=== PATIENT | female | born 1985 | race Caucasian/White ===

== ENCOUNTER → 2016-08-23 | Outpatient (REF) | payer OTHER ==
[~2016-08-23] MED LIST: COLA100C PO; EXTR500C4 PO; MOTR200T44 PO
== END ==
LOC: M LAB REF 13:43
PROVIDERS: ATTEND Advanced Practice Midwife
DX: Z34.83 Encounter for supervision of other normal pregnancy, third trimester (principal); Z36 Encounter for antenatal screening of mother; Z3A.00 Weeks of gestation of pregnancy not specified

== ENCOUNTER → 2016-08-31 | Outpatient (CLI) | payer OTHER ==
[2016-08-31 14:38] LABS: FREE T4 0.95 NG/DL (0.76-1.46)
== END ==
LOC: M SMT 11:31
PROVIDERS: ATTEND Obstetrics & Gynecology
DX: Z34.83 Encounter for supervision of other normal pregnancy, third trimester (principal)

== ENCOUNTER 2016-09-20 11:44 | Inpatient (IN) | payer OTHER ==
[2016-09-20] VITALS (7 sets, daily range): BP systolic 110–134; BP diastolic 75–81
[~2016-09-20] VITALS: Ht 154.9 cm; Wt 85.0 kg
[2016-09-20] MEDS ORDERED: LEVO75TA4 PO (12:14)
[2016-09-20] MEDS ORDERED: LR 1,000 ML IV SCH (13:01)
[2016-09-20] MEDS ORDERED: LACTATED RINGER'S 1000 ML IV STA (13:01)
[2016-09-20] MEDS ORDERED: miSOPROStol 25 MCG 1/4 TAB (S0191) PV ONE ×2 (13:15→17:45)
[2016-09-20 13:50] LABS: MEAN CORPUSCULAR HGB CONC 33.5 g/dl (32.0-36.5); MEAN CORPUSCULAR VOLUME 89.5 fl (80.0-96.0); RED CELL DISTRIBUTION WIDTH 12.6 % (11.5-14.5); WHITE BLOOD COUNT 10.9 K/mm3 (4.0-10.0)
[2016-09-20] MEDS ORDERED: FAMOTIDINE 20 MG TAB PO SCH (21:00)
[2016-09-20] MEDS ORDERED: OXYTOCIN DRIP 30 UNITS in APPROPRIATE DILUENT 1 EA IV SCH (21:45)
[2016-09-21] VITALS (71 sets, daily range): BP systolic 87–141; BP diastolic 52–93
[2016-09-21] MEDS ORDERED: FENTANYL 2MCG/ML ROPIVACAINE 0.2% NACL 250 ML CADD As Ordered ONE (02:35)
[2016-09-21] MEDS ORDERED: ONDANSETRON 4MG/2ML VIAL (J2405) IV PRN ×2 (03:00→23:15)
[2016-09-21] MEDS ORDERED: REFRIGERATOR IV KEYS XX PRN (03:00)
[2016-09-21] MEDS ORDERED: ePHEDrine SULFATE 25 MG/5 ML(5MG/ML) SYRINGE IV PRN (03:00)
[2016-09-21] MEDS ORDERED: NALOXONE INJ 0.4 MG/1 ML VIAL (J2310) IV PRN ×3 (03:00→23:15)
[2016-09-21] MEDS ORDERED: FENTANYL/ROPIVACAINE/NACL BAG 200 ML EPIDURAL SCH (03:00)
[2016-09-21] MEDS ORDERED: EPIDURAL COMMENT XX SCH (03:00)
[2016-09-21] MEDS ORDERED: diphenhydrAMINE INJ 50MG/ML VIAL (J1200) IV PRN (03:00)
[2016-09-21] MEDS ORDERED: EPIDURAL/PCA KEYS XX PRN (03:00)
[2016-09-21] MEDS ORDERED: LACTATED RINGER'S 1000 ML IV PRN (03:00)
[2016-09-21] MEDS: LEVOTHYROXINE 0.075 MG TAB (75 MCG) PO SCH (08:28)
[2016-09-21] MEDS ORDERED: ceFAZolin 2 GM/D5W 50 ML IV BAG (J0690) As Ordered ONE (22:36)
[2016-09-21] MEDS ORDERED: BICITRA 30ML SOLN UDC As Ordered ONE (22:36)
[2016-09-21] MEDS ORDERED: MORPHINE PRES-FREE INJ 10 MG/10 ML VIAL (J2274) As Ordered ONE (23:12)
[2016-09-21] MEDS ORDERED: METOCLOPRAMIDE INJ 10MG/2ML VIAL (J2765) IV PRN (23:15)
[2016-09-21] MEDS ORDERED: NALBUPHINE HCL 10 MG/ML AMP (J2300) IV PRN (23:15)
[2016-09-21] MEDS ORDERED: KETOROLAC 60 MG/2 ML VIAL (J1885) As Ordered ONE (23:38)
[2016-09-21] MEDS ORDERED: ePHEDrine SULFATE 25 MG/5 ML(5MG/ML) SYRINGE As Ordered ONE (23:38)
[2016-09-21] MEDS ORDERED: OXYTOCIN INJ 10 UNITS/ML VIAL (J2590) As Ordered ONE (23:38)
[2016-09-21] MEDS ORDERED: ONDANSETRON 4MG/2ML VIAL (J2405) As Ordered ONE (23:38)
[2016-09-21] MEDS: LR 1,000 ML IV SCH (23:55)
[2016-09-22] VITALS (10 sets, daily range): BP systolic 111–132; BP diastolic 57–66
[2016-09-22] MEDS ORDERED: MEASLES,MUMPS,RUBELLA VACCINE INJ (MMR-II) (90707) SC SCH
[2016-09-22] MEDS ORDERED: OXYTOCIN DRIP 30 UNITS in APPROPRIATE DILUENT 1 EA IV ONE ×2
[2016-09-22] MEDS ORDERED: RHOGAM 300 MCG (1500 IU) INJ (J2790) IM SCH
[2016-09-22] MEDS ORDERED: DOCUSATE SODIUM 100 MG CAP PO PRN
[2016-09-22] MEDS ORDERED: OXYC1TAB23 PO (00:01)
[2016-09-22] MEDS ORDERED: PERCOCET 5MG/325MG TAB PO PRN ×3 (00:15)
[2016-09-22] MEDS ORDERED: fentaNYL 100 MCG/2 ML INJECTION (J3010) IV PRN (00:15)
[2016-09-22] MEDS ORDERED: METOCLOPRAMIDE INJ 10MG/2ML VIAL (J2765) IV PRN (00:15)
[2016-09-22] MEDS ORDERED: MEPERIDINE INJ 25 MG/ML VIAL (J2175) IV PRN (00:15)
[2016-09-22] MEDS ORDERED: ONDANSETRON 4MG/2ML VIAL (J2405) IV PRN ×2 (00:15)
[2016-09-22] MEDS ORDERED: LR 1,000 ML IV SCH (00:15)
[2016-09-22 00:50] LABS: CORD GAS ABE A -4.4; CORD GAS HCO3 A 22.9 MEQ/L; CORD GAS O2 SAT A 16.1 %; CORD GAS PCO2 A 50.5 mmHg; CORD GAS PH A 7.274 UNITS; CORD GAS PO2 A 11.6 mmHg; CORD GAS SBC A 18.9 MEQ/L; CORD GAS TCO2 A 24.4 MEQ/L
[2016-09-22 00:51] LABS: CORD GAS PCO2 V 36.4 mmHg; CORD GAS PH V 7.31 UNITS
[2016-09-22 00:52] LABS: CORD GAS ABE V -7.5; CORD GAS HCO3 V 17.9 MEQ/L; CORD GAS O2 SAT V 41.4 %; CORD GAS PO2 V 20.9 mmHg; CORD GAS SBC V 17.2 MEQ/L
[2016-09-22] MEDS: LEVOTHYROXINE 0.075 MG TAB (75 MCG) PO SCH (05:44)
[2016-09-22] MEDS: KETOROLAC 30 MG/ML VIAL (J1885) IV SCH ×4 (05:45→23:54)
--- NOTE | 2016-09-22 05:55 | RO ---
DATE OF PROCEDURE: 09/21/2016 PREOPERATIVE DIAGNOSIS: 40+ weeks gestation, arrest of dilation. POSTOPERATIVE DIAGNOSIS: 40+ weeks gestation, arrest of dilation. PROCEDURE: Primary low transverse section. SURGEON: Kilo Mesa MD ORACLE ENDECA CONSULTANT: Merissa Daniel MD ANESTHESIA: Epidural. ESTIMATED BLOOD LOSS: 800 mL. FINDINGS: 9 pound 12 ounce or 4422 gram male infant. score 8 and 9. Normal uterus, fallopian tubes and ovaries. DESCRIPTION OF PROCEDURE: The patient was taken to the operating room where epidural anesthesia was found to be adequate. She was prepped and draped in sterile fashion in the supine position. A Mccabe catheter was already in place. A Pfannenstiel skin incision was made with the scalpel and carried through to the underlying fascia. The fascia was nicked and extended. The peritoneal cavity was entered. Bladder flap was created. A curvilinear incision was made in the lower uterine segment until clear fluid was noted. This was extended manually. The was delivered in the vertex position without difficulty. The infant cried spontaneously. The cord was doubly clamped and cut. The was handed off to the awaiting nurses. The placenta was expressed. The uterus was exteriorized and cleared of clots and debris. The uterine incision was closed with #0 Vicryl in a running locked fashion. A second imbricating layer of #0 Vicryl was placed. The uterus was placed back in the abdominal cavity. The peritoneum was closed with #2-0 Vicryl in a running fashion. The fascia was closed with #0 Vicryl in a running fashion. The deep layer was irrigated and closed with #3-0 chromic. The skin was closed with #4-0 Monocryl subcuticular sutures. Sponge, instrument and needle counts were correct times two.
[2016-09-22] MEDS: LR 1,000 ML IV SCH ×3 (07:55→19:27)
[2016-09-22 08:36] LABS: MEAN CORPUSCULAR HEMOGLOBIN 30.6 pg (27.0-33.0); MEAN CORPUSCULAR HGB CONC 33.4 g/dl (32.0-36.5); MEAN CORPUSCULAR VOLUME 91.5 fl (80.0-96.0); RED CELL DISTRIBUTION WIDTH 12.8 % (11.5-14.5); WHITE BLOOD COUNT 17.4 K/mm3 (4.0-10.0)
[2016-09-22] MEDS: PRENATAL VITAMIN TAB PO SCH (10:24)
[2016-09-23 05:41] VITALS: BP 117/63
[2016-09-23] MEDS: LEVOTHYROXINE 0.075 MG TAB (75 MCG) PO SCH (05:57)
--- NOTE | 2016-09-23 07:01 | DSES ---
DATE OF ADMISSION: 09/20/2016 DATE OF DISCHARGE: 09/23/2016 DISCHARGE DIAGNOSIS: Primary section, postop day 2, stable condition. SURGEON: Dr. Kilo Mesa HISTORY: Marisol is a 5, para 2-0-1-2 now who went underwent primary low transverse section due to arrest of dilation at 40+ weeks gestation. Surgery was uncomplicated. She delivered a 9 pound 12 ounce fetus, 4422 grams. scores of 8 and 9. Her postoperative course has been uncomplicated. She has been out of bed for self care, zachariah care and infant care. Her pain has been well controlled with p.o. Percocet. is established and she does desire to be discharged home today. Vital signs are stable. Temperature 97.8, pulse 90, respirations 18, blood pressure is 117/63. Her breasts are soft and nontender. Abdomen fundus firm at U, incision is intact. There is no drainage. No warmth. No edema and no redness. Perineum is intact with lochia rubra moderate. Bilateral lower extremities with +1 pitting edema. PLAN: Discharge the patient home today. I did review discharge instructions that include a 2-week incision check and a 6-week visit at [facility]. I reviewed breast care, incision care, zachariah care, pelvic rest, activity and lifting restrictions, access to care and other danger signs to report. Prescriptions have been E-prescribed to her pharmacy by Dr. Mesa for Percocet 5/325, 1-2 tablets by mouth as needed for pain every 6 hours.
[2016-09-23] MEDS: PRENATAL VITAMIN TAB PO SCH (07:42)
[2016-09-23] MEDS ORDERED: LEVO75TA4 PO (07:49)
[2016-09-23] MEDS ORDERED: IBUP-1114 PO (07:50)
[2016-09-23] MEDS ORDERED: OXYC1TAB23 PO ×2 (07:50→07:52)
[2016-09-23] MEDS ORDERED: PRENTAB9 PO (07:50)
[2016-09-23] MEDS ORDERED: IBUPROFEN 800 MG TAB PO SCH (08:00)
== END 2016-09-23 15:00 | disposition home or self-care (01) | DRG 766 ==
LOC: M LDI 11:44 → M OBS 09-22 01:18
PROVIDERS: ADMIT Obstetrics & Gynecology; ATTEND Obstetrics & Gynecology
PROC: 3E030VJ Introduction of Other Hormone into Peripheral Vein, Open Approach (ICD-10-PCS; 2016-09-20)
PROC: 10907ZC Drainage of Amniotic Fluid, Therapeutic from Products of Conception, Via Natural or Artificial Opening (ICD-10-PCS; 2016-09-20)
PROC: 10D00Z1 Extraction of Products of Conception, Low, Open Approach (ICD-10-PCS; principal; 2016-09-21 23:05)
DX: O48.0 Post-term pregnancy (principal); Z37.0 Single live birth; Z3A.40 40 weeks gestation of pregnancy; Z79.899 Other long term (current) drug therapy; Z80.3 Family history of malignant neoplasm of breast; O99.284 Endocrine, nutritional and metabolic diseases complicating childbirth; E03.9 Hypothyroidism, unspecified; O62.0 Primary inadequate contractions

== ENCOUNTER → 2016-11-09 | Outpatient (CLI) | payer OTHER ==
[~2016-11-09] MED LIST changes: -COLA100C PO; +COLA100C3 PO; +IBUP-1114 PO; +LEVO75TA4 PO; +OXYC1TAB23 PO; +PRENTAB9 PO
[2016-11-09 18:41] LABS: FREE T4 1.19 NG/DL (0.76-1.46)
== END ==
LOC: M LRY 13:16
PROVIDERS: ATTEND Obstetrics & Gynecology
DX: E03.9 Hypothyroidism, unspecified (principal)